=== PATIENT | female | born 1990 | race American Indian/Alaskan Native ===

== ENCOUNTER 2018-05-04 16:52 | Inpatient (IN) | payer MEDICAID, OTHER ==
[2018-05-04] MEDS ORDERED: LACTATED RINGERS 500 ML IV ONE (17:05)
[2018-05-04 18:59] LABS: Hematocrit 38.7 % (30.3-42.9); Hemoglobin 12.7 gm/dl (10.1-14.3); Mean Corpuscular HGB Conc 33 % (30-34); Mean Corpuscular Volume 87 fl (79-97); Platelet Count 250 K/mm3 (140-440); Red Blood Count 4.45 M/mm3 (3.65-5.03); Red Cell Distribution Width 14.4 % (13.2-15.2)
[2018-05-04 19:06] LABS: Bilirubin,Urine NEG (Negative); Blood,Urine NEG (Negative); Color,Urine Yellow (Yellow); Mucus,Urine FEW /HPF; Urobilinogen,Urine < 2.0 mg/dL (<2.0); WBC,Urine < 1.0 /HPF (0.0-6.0)
[2018-05-04 19:13] LABS: Alanine Aminotransferase 16 units/L (7-56); Uric Acid 3.3 mg/dL (3.5-7.6)
[2018-05-04] MEDS ORDERED: TYLENOL PO PRN (19:45)
[2018-05-04] MEDS ORDERED: COLACE PO PRN (19:45)
--- NOTE | 2018-05-04 20:17 | History and Physical Report ---
History of Present Illness Date of examination: 05/04/18 Date of admission: 05/04/18 Chief complaint: "Sent from the clinic due to high blood pressure" History of present illness: 27yo G 1 P 0 at 35 weeks 5 days here from the clinic for PIH workup. BPs at the clinic were 146/97, 142/101. She denies headache, visual disturbances or RUQ pain. She is a [employer] patient who initiated care at 26w2d. She transferred care from [facility]. Her course has been unremarkable. Labs: A pos, Antibody Screen neg, Pap smear normal, RI, VDRL NR, HBsAg neg, HIV neg , GC/CT.Trich neg, HSV II neg/ HSV I pos, MSAFP neg, Diabetes Screen 98, GBS unknown (done today at the clinic). Past History Past Medical History: no pertinent history Past Surgical History: no surgical history Family/Genetic History: none Social history: single, lives with family, full code. denies: smoking, alcohol abuse, prescription drug abuse, IV drug use - Obstetrical History Expected Date of Delivery: 06/03/18 Actual Gestation: 35 Week(s) 5 Day(s) : 1 Para: 0 Hx # Term Pregnancies: 0 Number of Pregnancies: 0 Spontaneous Abortions: 0 Induced : 0 Number of Living Children: 0 Medications and Allergies Allergies Allergy/AdvReac Type Severity Reaction Status Date / Time No Known Allergies Allergy Verified 05/04/18 17:04 Active Meds: Active Medications Acetaminophen (Tylenol) 650 mg PO Q4H PRN PRN Reason: Pain MILD(1-3)/Fever >100.5/ROUSE Docusate Sodium (Colace) 100 mg PO Q12H PRN PRN Reason: Constipation Multivitamins/Iron/Calcium ( Vitamin) 1 each PO QDAY ROSAURA Review of Systems All systems: negative - Vital Signs Vital signs: Vital Signs Pulse BP 87 141/89 05/04/18 17:56 05/04/18 17:56 Temp Pulse Resp BP Pulse Ox 97.7 F 85 20 138/94 05/04/18 18:11 05/04/18 19:56 05/04/18 18:11 05/04/18 19:56 - Obstetrical FHR: auscultation normal, category 1 FHR comments: baseline 130, moderate variability, 15x15 accels, no decels Uterine Contraction Monitor Mode: External Cervical Dilatation: 0 Cervical Effacement Percentage: 20 station: -3 Uterine Contraction Pattern: Regular Results Result Diagrams: 05/04/18 18:28 05/04/18 18:28 Abnormal lab results 05/04/18 Range/Units 18:28 Creatinine 0.6 L (0.7-1.2) mg/dL Uric Acid 3.3 L (3.5-7.6) mg/dL Lactate Dehydrogenase 214 H (91-180) units/L All other labs normal. Assessment and Plan - Patient Problems (1) 35 weeks gestation of Current Visit: Yes Status: Acute (2) Gestational hypertension without significant proteinuria in third trimester Current Visit: Yes Status: Acute Plan to address problem: Asymptomatic Consulted Dr. Love about POC. She recommended - to admit patient for 23-hr Observation - start 24-hr urine collection - order BPP, TU and UAD - initiate [facility] consult
--- NOTE | 2018-05-04 22:22 | Ultrasound Report ---
PROCEDURE: US OB BPP WO NON-STRESS TECHNIQUE: A limited OB sonogram was obtained for evaluation of the physical profile. HISTORY: Gestational Hypertension COMPARISONS: None FINDINGS: A maximum score of 2 out of 2 was obtained for breathing movements, movements, post ure and tone, as well as qualitative amniotic fluid volume. The total biophysical profile score is 8 out of 8. The heart rate is 141 BPM. IMPRESSION: Biophysical profile score of 8 out of 8.. This document is electronically signed by Jamie Pitts MD., May 04 2018 10:19:56 PM ET
--- NOTE | 2018-05-04 22:37 | Ultrasound Report ---
PROCEDURE: US OB LIMITED TECHNIQUE: Real-time limited sonographic examination was performed for evaluation of amniotic fluid for each fetus with image documentation (1 or more fetuses). HISTORY: Gestational Hypertension COMPARISONS: None . FINDINGS: Single intrauterine gestation is noted with a heart rate of 1 41 bpm. Amniotic fluid index is 1 5.6 cm. Presentation is cephalic. IMPRESSION: Amniotic fluid is within normal limits. . This document is electronically signed by Ilir Sanabria MD., May 04 2018 10:34:49 PM ET
[2018-05-04] MEDS ORDERED: LACTATED RINGERS 1,000 ML ONE (23:49)
--- NOTE | 2018-05-05 09:22 | Ultrasound Report ---
PROCEDURE: US OB VELOCIMETRY UMBILCAL ART TECHNIQUE: Duplex Doppler ultrasound of the umbilical artery was performed HISTORY: Gestational Hypertension COMPARISONS: None FINDINGS: There is a normal waveform of the umbilical artery. Peak systolic velocity is 55.7 cm/s. The systolic to diastolic ratio average is 2.24. The average resistive index is 0.55. heart rate is 141 beats per minutes IMPRESSION: Normal examination of the umbilical artery. This document is electronically signed by France Gates MD., May 05 2018 09:19:55 AM ET
--- NOTE | 2018-05-05 09:42 | Consultation ---
History of Present Illness Consult date: 05/05/18 Requesting physician: JING MOTA Reason for consult: gestational hypertension History of present illness: Thank you for your recent consultation regarding the above named patient. As you are aware, this is a 27 year old para 0000 at 35+ weeks gestation (based on an GIORGIO of 05/31/18) This is a patient that was admitted to [facility] on Friday, May 04, 2018 when she was noted to have elevated blood pressure Her 24 hour urine is pending. She was admitted to rule out preeclampsia. Her blood pressure was mild elevation (see below) She is currently under observation to rule out superimposed preeclampsia. Baseline 24 hour urine showed : NOT AVAILABLE. Her labs show no signs of HELLP. Symptomatically, the patient describes DENIES dizziness and denies headache. She does NOT describe recent swelling of the face and upper extremities. PAST OBSTETRICAL HISTORY: NO previous pregnancies. PAST MEDICAL HISTORY: * Patient gives a NOT give a history of chronic hypertension. AVAILABLE LAB TEST ON ADMISSION: PENDING. Baseline 24 hour urine: NOT AVAILABLE Current 24 hour urine: PENDING.. [facility] ULTRASON[facility]APHY See report in patients chart. RECENT BLOOD PRESSURES: 120/72 FHR Tracing: Category 1. No recurrent decelerations. Past History Past Medical History: no pertinent history Past Surgical History: no surgical history Family/Genetic History: none - Obstetrical History : 1 Medications and Allergies Allergies Allergy/AdvReac Type Severity Reaction Status Date / Time No Known Allergies Allergy Verified 05/04/18 17:04 Active Meds: Active Medications Acetaminophen (Tylenol) 650 mg PO Q4H PRN PRN Reason: Pain MILD(1-3)/Fever >100.5/ROUSE Docusate Sodium (Colace) 100 mg PO Q12H PRN PRN Reason: Constipation Multivitamins/Iron/Calcium ( Vitamin) 1 each PO QDAY ROSAURA - Vital Signs Vital signs: Vital Signs Pulse BP 87 141/89 05/04/18 17:56 05/04/18 17:56 Temp Pulse Resp BP Pulse Ox 98.6 F 81 18 120/72 97 05/04/18 23:56 05/05/18 07:48 05/04/18 23:56 05/05/18 07:48 05/05/18 07:46 Results Result Diagrams: 05/04/18 18:28 05/04/18 18:28 Abnormal lab results 05/04/18 Range/Units 18:28 Creatinine 0.6 L (0.7-1.2) mg/dL Uric Acid 3.3 L (3.5-7.6) mg/dL Lactate Dehydrogenase 214 H (91-180) units/L All other labs normal. Assessment and Plan ASSESSMENT * This is a 27 year old para 0 at 35 weeks gestation with elevated blood pressure. * Rule out preeclampsia. * At the present gestational age, there MAY be some utility to an attempt to prolong gestation to improve outcome. * prolongation should NOT occur in the presence of any signs of symptoms of severe preeclampsia. RECOMMENDATION: Given her gestational age we would recommend DELIVERY in the presence of any findings which would suggest SEVERE preeclampsia. If the patient develops any of the criteria for delivery (see below) during observation we would recommend taking steps to deliver this . Would proceed as follows: 1. Agree with admission for serial BP, urinalysis, PIH labs and observation. 2. Obtain a 24 hour urine 3. Contact [facility] with the results of the 24 hour urine. 4. Kindly follow-up the results of this patient's repeat 24-hour urine for protein and creatinine clearance and forward them to [facility] for review. 5. In the presence of overt evidence of severe preeclampsia we recommend delivery of this patient. 6. I have indicated that a persistent headache unresponsive to analgesia would be a clear indication for delivery of this patient. 7. Kindly contact [facility] if there is any question as to whether this patient is a candidate for delivery. 8. At 35 weeks gestation; it would appear that there is some benefit to an expectant management protocol to prolong gestation in order to improve outcome without increasing maternal morbidity. In a patient with MILD preeclampsia we recommend DELIVERY at 37 weeks. In a patient with SEVERE preeclampsia we recommend DELIVERY either AT DIAGNOSIS or at 34 weeks gestation. Reference: REFERENCE: Medically indicated late- and early-term deliveries. Committee Opinion No. 560. [employer]. Obstet Gynecol 2013;121:18792. 9. The indications for discontinuation of expectant management and DELIVERY in this patient would include ANY of the following: * heart rate abnormalities, (ie, bradycardia , repetitive late or variable decelerations) * Significant new onset proteinuria (see above) * Thrombocytopenia * Hemolysis, * Elevation in liver function tests * Blood pressure that is very labile or poorly controlled with reasonable doses of intravenous labetalol * Symptoms of severe pre-eclampsia epigastric discomfort, headache, dizziness, blurred vision, RUQ pain, seizure. * Standard obstetrical indications Thank you for allowing us to participate in the care of this patient. We look forward to the opportunity to assist in her continued management. If you have any questions, we may be reached [phone]. Lyly Best M.D.
[2018-05-05] MEDS ORDERED: PRENATAL VITAMIN PO SCH (10:00)
--- NOTE | 2018-05-05 17:16 | Progress Note ---
Assessment and Plan - Patient Problems (1) 35 weeks gestation of Current Visit: Yes Status: Acute (2) Gestational hypertension without significant proteinuria in third trimester Current Visit: Yes Status: Acute Plan to address problem: 24hr urine protein in progress. PIH labs within normal limits. Continue monitoring blood pressure. [facility] consult done. If CHTN S/I severe deliver now, if mild deliver at 37 weeks. Objective - Vital Signs Vital Signs: Vital Signs - 12hr 05/05/18 05/05/18 05/05/18 05:16 05:21 05:26 Temperature Pulse Rate 104 H 85 83 Respiratory Rate Blood Pressure O2 Sat by Pulse 97 97 97 Oximetry 05/05/18 05/05/18 05/05/18 05:31 05:36 05:41 Temperature Pulse Rate 88 83 83 Respiratory Rate Blood Pressure O2 Sat by Pulse 95 95 96 Oximetry 05/05/18 05/05/18 05/05/18 05:46 05:51 05:52 Temperature Pulse Rate 86 92 H 103 H Respiratory Rate Blood Pressure O2 Sat by Pulse 98 95 94 Oximetry 05/05/18 05/05/18 05/05/18 05:56 06:01 06:03 Temperature Pulse Rate 96 H 86 92 H Respiratory Rate Blood Pressure 115/65 O2 Sat by Pulse 99 95 Oximetry 05/05/18 05/05/18 05/05/18 06:06 06:09 06:11 Temperature Pulse Rate 94 H 91 H 96 H Respiratory Rate Blood Pressure O2 Sat by Pulse 95 94 96 Oximetry 05/05/18 05/05/18 05/05/18 06:16 06:17 06:21 Temperature Pulse Rate 85 97 H 92 H Respiratory Rate Blood Pressure O2 Sat by Pulse 96 94 95 Oximetry 05/05/18 05/05/18 05/05/18 06:22 06:26 06:31 Temperature Pulse Rate 89 95 H 89 Respiratory Rate Blood Pressure O2 Sat by Pulse 93 96 96 Oximetry 05/05/18 05/05/18 05/05/18 06:32 06:36 07:40 Temperature 98.8 F Pulse Rate 92 H 88 Respiratory 18 Rate Blood Pressure O2 Sat by Pulse 94 97 Oximetry 05/05/18 05/05/18 05/05/18 07:46 07:48 09:43 Temperature Pulse Rate 90 81 95 H Respiratory Rate Blood Pressure 120/72 O2 Sat by Pulse 97 94 Oximetry 05/05/18 05/05/18 05/05/18 09:48 10:27 11:01 Temperature Pulse Rate 88 78 105 H Respiratory Rate Blood Pressure 119/66 O2 Sat by Pulse 92 94 93 Oximetry 05/05/18 05/05/18 05/05/18 11:49 11:54 12:39 Temperature Pulse Rate 78 95 H 101 H Respiratory Rate Blood Pressure 119/74 132/75 O2 Sat by Pulse 94 Oximetry 05/05/18 05/05/18 05/05/18 12:41 13:48 15:11 Temperature 97.9 F Pulse Rate 89 98 H Respiratory 16 Rate Blood Pressure 125/74 O2 Sat by Pulse 93 Oximetry 05/05/18 05/05/18 05/05/18 16:07 16:12 16:17 Temperature Pulse Rate 92 H 96 H 88 Respiratory Rate Blood Pressure O2 Sat by Pulse 98 98 98 Oximetry 05/05/18 05/05/18 05/05/18 16:22 16:27 16:32 Temperature Pulse Rate 86 91 H 86 Respiratory Rate Blood Pressure O2 Sat by Pulse 98 98 98 Oximetry 05/05/18 05/05/18 05/05/18 16:37 17:02 17:07 Temperature Pulse Rate 84 95 H 101 H Respiratory Rate Blood Pressure O2 Sat by Pulse 98 98 97 Oximetry 05/05/18 17:12 Temperature Pulse Rate 95 H Respiratory Rate Blood Pressure O2 Sat by Pulse 97 Oximetry - Labs Labs: Abnormal Labs 05/04/18 18:28 Creatinine 0.6 L Uric Acid 3.3 L Lactate Dehydrogenase 214 H Laboratory Results - last 24 hr 05/04/18 05/04/18 05/04/18 18:28 18:28 18:33 WBC 8.0 RBC 4.45 Hgb 12.7 Hct 38.7 MCV 87 MCH 29 MCHC 33 RDW 14.4 Plt Count 250 Creatinine 0.6 L Estimated GFR > 60 Uric Acid 3.3 L AST 27 ALT 16 Lactate Dehydrogenase 214 H Urine Color Yellow Urine Turbidity Clear Urine pH 6.0 Ur Specific [place] 1.026 Urine Protein 30 mg/dl Urine Glucose (UA) Neg Urine Ketones Neg Urine Blood Neg Urine Nitrite Neg Urine Bilirubin Neg Urine Urobilinogen < 2.0 Ur Leukocyte Esterase Neg Urine WBC (Auto) < 1.0 Urine RBC (Auto) 2.0 U Epithel Cells (Auto) 8.0 Urine Mucus Few Blood Type Antibody Screen 05/04/18 21:59 WBC RBC Hgb Hct MCV MCH MCHC RDW Plt Count Creatinine Estimated GFR Uric Acid AST ALT Lactate Dehydrogenase Urine Color Urine Turbidity Urine pH Ur Specific [place] Urine Protein Urine Glucose (UA) Urine Ketones Urine Blood Urine Nitrite Urine Bilirubin Urine Urobilinogen Ur Leukocyte Esterase Urine WBC (Auto) Urine RBC (Auto) U Epithel Cells (Auto) Urine Mucus Blood Type A POSITIVE Antibody Screen Negative
[2018-05-06 12:42] VITALS: BP 117/69
--- NOTE | 2018-05-06 13:11 | Consultation ---
History of Present Illness Consult date: 05/06/18 Reason for consult: other (Suspected Preeclampsia) History of present illness: She is a 27yo , at 35+ weeks gestational, admitted to [facility] due to elevated BPs in primary OB office. 24 hour urine resulted 440. She complains of 2+edema in bilateral upper and lower extremities. She denies RUQ pain, visual disturbances, and headaches. She denies contractions, LOF, and bleeding. She admits positive movements. She is without additional complaints today. Past History Past Medical History: no pertinent history Past Surgical History: no surgical history Family/Genetic History: none - Obstetrical History : 1 Medications and Allergies Allergies Allergy/AdvReac Type Severity Reaction Status Date / Time No Known Allergies Allergy Verified 05/04/18 17:04 Active Meds: Active Medications Acetaminophen (Tylenol) 650 mg PO Q4H PRN PRN Reason: Pain MILD(1-3)/Fever >100.5/ROUSE Docusate Sodium (Colace) 100 mg PO Q12H PRN PRN Reason: Constipation Multivitamins/Iron/Calcium ( Vitamin) 1 each PO QDAY ROSAURA Last Admin: 05/05/18 10:49 Dose: 1 each Documented by: Review of Systems Constitutional: other (denies fever, headaches, fatigue) Eyes: other (denies visual disturbances) Ears, nose, mouth and throat: deferred Cardiovascular: leg edema, other (denies chest pain, palpitations) Respiratory: other (denies sob, wheezing, coughing) Breasts: deferred Gastrointestinal: other (denies diarrhea, constipation, nausea, RUQ pain) Genitourinary: other (denies contractions, leaking of fluid, and bleeding) Rectal Exam: deferred Integumentary: deferred Neurological: other (denies headaches) - Vital Signs Vital signs: Vital Signs Pulse BP 87 141/89 05/04/18 17:56 05/04/18 17:56 Temp Pulse Resp BP Pulse Ox 97.5 F L 96 H 18 117/69 97 05/06/18 08:30 05/06/18 13:03 05/06/18 08:30 05/06/18 12:41 05/06/18 13:03 - Physical Exam Breasts: Positive: deferred Cardiovascular: Regular rate, Normal S1, Normal S2 Lungs: Positive: Clear to auscultation, Normal air movement Abdomen: Positive: soft, other (gravid) Results Result Diagrams: 05/04/18 18:28 05/04/18 18:28 Abnormal lab results 05/04/18 Range/Units 22:45 Ur Total Protein 24 Hr 440.00 H (2-200) mg/dL Urine Total Protein 20 H (5-11.8) mg/dL All other labs normal. Assessment and Plan A- [place] IUP 35+ weeks (GIORGIO 05/31/18) 24 hour urine protein- 440 Other labs stable Bilateral upper and lower extremities edema Denies RUQ pain, visual disturbances, headaches BP stable- not requiring medication management Normal ultrasound an BPP noted Positive movements Denies LOF, Bleeding, and Contractions Recommendations: 1. Discharge patient and she should follow up with [facility] once weekly until delivery to monitor for GHTN with mild preeclampsia 2. Preeclampsia symptoms reviewed with pt 3. Kick counts reviewed with pt. 4. With worsening symptoms, recommend delivery 5. In a patient with MILD preeclampsia we recommend DELIVERY at 37 weeks. Thank you for this consult. For additional questions/concerns, please contact [facility].
--- NOTE | 2018-05-06 13:57 | Discharge Summary ---
Providers - Providers Date of Admission: 05/06/18 09:05 Date of discharge: 05/06/18 Attending physician: MONTY SAUL MD 05/04/18 19:45 Consult to Physician [CONS] Routine Comment: Consulting Provider: AILYN REDMAN I Physician Instructions: Reason For Exam: 35w5d, Gestational Hypertension Primary care physician: MONTY SAUL MD Hospitalization Reason for admission: IUP - (IUP @ 35 5/7 weeks), observation Other procedures: none complications: none Discharge diagnosis: other (IUP @ 36 0/7 weeks; PIH - improved) Hospital course: She is a 27yo , at 36 0/7 weeks gestational, admitted to [facility] due to eleva ginny BPs in primary OB office. 24 hour urine resulted 440. She complains of 2+edema in bilateral upper and lower extremities. She denies RUQ pain, visual disturbances, and headaches. She denies contractions, LOF, and bleeding. She admits positive movements. She is without additional complaints today, and cleared for discharge per [facility].. Condition at discharge: Good Disposition: DC-01 TO HOME OR SELFCARE - Discharge Diagnoses (1) 36 weeks gestation of Status: Acute (2) Gestational hypertension without significant proteinuria in third trimester Status: Chronic Plan - Provider Discharge Summary Activity: routine, no sex for 6 weeks, no heavy lifting 4 weeks, no strenuous exercise Diet: routine Instructions: routine Additional instructions: [] Smoking cessation referral if applicable(refer to patient education folder for contact #) [] Refer to [facility] Booklet Call your doctor immediately for: * Fever > 100.5 * Heavy vaginal bleeding ( >1 pad per hour) * Severe persistent headache * Shortness of breath * Reddened, hot, painful area to leg or breast * Drainage or odor from incision. * Keep incision clean and dry at all times and follow doctor's instructions regarding bathing/showering - Follow up plan Follow up: AILYN REDMAN MD [Staff Physician] - 7 Days MONTY SAUL MD [Primary Care Provider] - 3 Days
== END 2018-05-06 15:06 | disposition home or self-care (01) | DRG 781 ==
LOC: TRG 16:52 → LD 21:55 → OBSVTOIN 05-06 09:05
PROVIDERS: ADMIT Obstetrics & Gynecology; ATTEND Obstetrics & Gynecology
DX: O14.03 Mild to moderate pre-eclampsia, third trimester (principal); Z3A.35 35 weeks gestation of pregnancy
CPT/HCPCS: 36415; 76815; 76819; 76820; 81001; 82565; 83615; 84156; 84450; 84460; 84550; 85027; 86850; 86900; 86901; G0378; J7120

== ENCOUNTER 2018-05-20 20:37 | Inpatient (IN) | payer OTHER ==
[2018-05-20] MEDS ORDERED: STADOL IV PRN (22:33)
[2018-05-20] MEDS ORDERED: AMPICILLIN/NS 2 GM/100 ML 2 GM/100 ML BAG IV ONE (22:34)
[2018-05-20] MEDS ORDERED: SUBLIMAZE IV ONE (22:36)
[2018-05-20] MEDS ORDERED: CERVIDIL VG ONE (22:41)
[2018-05-20] MEDS ORDERED: LACTATED RINGERS 1,000 ML ONE (22:44)
[2018-05-20] MEDS: LACTATED RINGERS 1,000 ML IV SCH (22:50)
[2018-05-21 00:01] LABS: Alanine Aminotransferase 18 units/L (7-56)
[2018-05-21 00:28] LABS: Uric Acid 3.7 mg/dL (3.5-7.6)
[2018-05-21 00:40] LABS: Hematocrit 34.8 % (30.3-42.9); Mean Corpuscular HGB Conc 35 % (30-34); Mean Corpuscular Volume 86 fl (79-97); Platelet Count 193 K/mm3 (140-440); Red Blood Count 4.04 M/mm3 (3.65-5.03)
[2018-05-21 00:51] LABS: Bilirubin,Urine NEG (Negative); Blood,Urine NEG (Negative); Color,Urine Yellow (Yellow); Mucus,Urine 2+ /HPF; Urobilinogen,Urine < 2.0 mg/dL (<2.0)
[2018-05-21] MEDS ORDERED: BENADRYL PO ONE ×3 (02:15→20:21)
[2018-05-21] MEDS: AMPICILLIN/NS 1 GM/50 ML 1 GM/50 ML BAG IV SCH ×5 (02:22→23:16)
[2018-05-21] MEDS: LACTATED RINGERS 1,000 ML IV SCH ×3 (09:09→23:17)
--- NOTE | 2018-05-21 10:32 | History and Physical Report ---
History of Present Illness Date of examination: 05/21/18 Date of admission: 05/20/18 20:37 Chief complaint: SIUP at 38 weeks and 1 day gestation. History of present illness: Patient is a 27 year old , LMP 08/27/17, EDC 06/03/18 at 38 weeks and 1 day. Sheb was admitted for elevated BP 0f 162/118. Initial exam showed her BP to be 150/105, cervix: closed/long. She was induced with cervidil. tracing is CAT. Toxemia labs showed elevated AST and LDH. Past History Past Surgical History: no surgical history Social history: no significant social history - Obstetrical History Expected Date of Delivery: 06/03/18 Actual Gestation: 38 Week(s) 1 Day(s) : 1 Medications and Allergies Allergies Allergy/AdvReac Type Severity Reaction Status Date / Time No Known Allergies Allergy Verified 05/04/18 17:04 Active Meds: Active Medications Butorphanol Tartrate (Stadol) 2 mg IV Q2H PRN PRN Reason: Labor Pain Lactated Ringer's (Lactated Ringers) 1,000 mls @ 125 mls/hr IV DIRECT ROSAURA Last Admin: 05/21/18 09:09 Dose: 125 mls/hr Documented by: Ampicillin Sodium (Ampicillin/Ns 1 Gm/50 Ml) 1 gm in 50 mls @ 100 mls/hr IV Q4HR ROSAURA; Protocol Last Admin: 05/21/18 07:50 Dose: 100 mls/hr Documented by: - Vital Signs Vital signs: Vital Signs Pulse Ox 83 L 05/06/18 14:30 Temp Pulse Resp BP Pulse Ox 93 H 149/90 83 L 05/21/18 07:53 05/21/18 07:53 05/06/18 14:56 - Physical Exam Cardiovascular: Normal S1, Normal S2 Lungs: Positive: Clear to auscultation Vulva: both: normal Deep Tendon Reflex Grade: Normal but brisk +3 - Obstetrical FHR: category 1 Cervical Dilatation: 0 Cervical Effacement Percentage: 0 station: -3 Uterine Contraction Pattern: Absent Results Result Diagrams: 05/21/18 00:22 05/20/18 22:21 Abnormal lab results 05/20/18 05/20/18 05/21/18 Range/Units 22:21 23:50 00:22 MCHC 35 H (30-34) % AST 45 H (5-40) units/L Lactate Dehydrogenase 527 H (91-180) units/L Ur Specific [place] 1.031 H (1.003-1.030) All other labs normal. Assessment and Plan - Patient Problems (1) 38 weeks gestation of Current Visit: Yes Status: Acute (2) Pre-eclampsia Current Visit: Yes Status: Acute Plan to address problem: Will start patients on magnesium. Monitor Mg level, urine output, DTRs. Monitor BP. Labetolol for BP control. (3) Positive GBS test Current Visit: Yes Status: Acute Plan to address problem: IV antibiotics in active labor.
[2018-05-21] MEDS ORDERED: MAGNESIUM SULFATE 4GM/100ML 4 GM/100 ML BAG IV ONE (11:45)
[2018-05-21] MEDS ORDERED: PITOCin/NS 20 UNIT/1000ML DRIP 20 UNITS/1,000 ML BAG IV SCH (12:00)
[2018-05-21] MEDS ORDERED: STADOL IV PRN (12:00)
[2018-05-21] MEDS ORDERED: MINERAL OIL PO PRN (12:00)
[2018-05-21] MEDS ORDERED: BRETHINE IVP PRN (12:00)
[2018-05-21] MEDS ORDERED: XYLOCAINE 2% INFILTRATI NR (12:00)
[2018-05-21] MEDS ORDERED: LACTATED RINGERS 1,000 ML IV SCH (12:00)
[2018-05-21] MEDS ORDERED: NARCAN 0.4 MG/1 ML IV PRN (12:00)
[2018-05-21] MEDS ORDERED: BRETHINE SUB-Q PRN (12:00)
[2018-05-21] MEDS ORDERED: PITOCin/NS 30 UNIT/500ML 30 UNITS/500 ML BAG IV SCH ×2 (12:00)
[2018-05-21] MEDS: MAGNESIUM SULFATE 40GM/1000ML 40 GM/1,000 ML BAG IV SCH (12:30)
--- NOTE | 2018-05-21 12:58 | Progress Note ---
Assessment and Plan A: Term IUP at 38w1d Preeclampsia; Magnesium bolus complete Category 1 tracing GBS positive Cooks Catheter placed@ 12:42, Pt tearful with "cramping/pressure" P: Routine labor orders Magnesium 2grams/hr GBS prophylaxis Start low dose pitocin; leave at 4Mu Anticipate Subjective - Subjective Date of service: 05/21/18 (12:42) Principal diagnosis: IUP term, pre-eclampsia Patient reports: movement normal, contractions, no loss of fluid, no vaginal bleeding Objective - Vital Signs Vital Signs: Vital Signs - 12hr 05/21/18 05/21/18 05/21/18 00:57 01:27 04:15 Pulse Rate 75 74 68 Blood Pressure 119/69 129/70 120/75 05/21/18 05/21/18 05/21/18 07:53 10:27 11:01 Pulse Rate 93 H 71 69 Blood Pressure 149/90 136/81 136/87 05/21/18 05/21/18 05/21/18 11:31 12:16 12:30 Pulse Rate 67 75 79 Blood Pressure 140/88 134/75 142/91 - Exam Cardiovascular: Regular rate, Normal S1, Normal S2, No murmurs Lungs: Clear to auscultation, Normal air movement Abdomen: Present: normal appearance, soft. Absent: distention Vulva: both: normal Uterus: Present: firm (Gravid) FHR: category 1 Uterine Contraction Monitor Mode: External Cervical Dilatation: 1 (Cooks catheter inserted in gentle fashion, Uterine & vaginal baloons inflated using 80cc NS. ) Cervical Effacement Percentage: 50 station: -2 Uterine Contraction Pattern: Regular Uterine Tone Measurement Phase: Resting Uterine Contraction Intensity: Mild Extremities: normal Deep Tendon Reflex Grade: Normal +2 - Labs Labs: Abnormal Labs 05/20/18 05/20/18 05/21/18 22:21 23:50 00:22 MCHC 35 H AST 45 H Lactate Dehydrogenase 527 H Ur Specific [place] 1.031 H Laboratory Results - last 24 hr 05/20/18 05/20/18 05/20/18 22:21 22:21 22:21 WBC RBC Hgb Hct MCV MCH MCHC RDW Plt Count Creatinine 0.8 Estimated GFR > 60 Uric Acid 3.7 AST 45 H ALT 18 Lactate Dehydrogenase 527 H Urine Color Urine Turbidity Urine pH Ur Specific [place] Urine Protein Urine Glucose (UA) Urine Ketones Urine Blood Urine Nitrite Urine Bilirubin Urine Urobilinogen Ur Leukocyte Esterase Urine WBC (Auto) Urine RBC (Auto) U Epithel Cells (Auto) Urine Mucus RPR Nonreactive Blood Type A POSITIVE Antibody Screen Negative 05/20/18 05/21/18 23:50 00:22 WBC 8.7 RBC 4.04 Hgb 12.0 Hct 34.8 MCV 86 MCH 30 MCHC 35 H RDW 14.0 Plt Count 193 Creatinine Estimated GFR Uric Acid AST ALT Lactate Dehydrogenase Urine Color Yellow Urine Turbidity Clear Urine pH 6.0 Ur Specific [place] 1.031 H Urine Protein 30 mg/dl Urine Glucose (UA) Neg Urine Ketones Neg Urine Blood Neg Urine Nitrite Neg Urine Bilirubin Neg Urine Urobilinogen < 2.0 Ur Leukocyte Esterase Neg Urine WBC (Auto) 2.0 Urine RBC (Auto) 2.0 U Epithel Cells (Auto) 9.0 Urine Mucus 2+ RPR Blood Type Antibody Screen
[2018-05-21] MEDS ORDERED: PFIZERPEN 2.5 MIL.UNITS in NACL 0.9% 50 ML IV SCH (14:00)
--- NOTE | 2018-05-21 15:53 | Anesthesia Consultation ---
Anesthesia Consult and Med Hx - Airway Anesthetic Teeth Evaluation: Good ROM Head & Neck: Adequate Mental/Hyoid Distance: Adequate Mallampati Class: Class I Intubation Access Assessment: Good - Pulmonary Exam CTA: Yes - Cardiac Exam Cardiac Exam: RRR - Pre-Operative Health Status ASA Pre-Surgery Classification: ASA2 Proposed Anesthetic Plan: Epidural - Pulmonary Hx Smoking: No Hx Asthma: No Hx Respiratory Symptoms: No COPD: No Hx Pneumonia: No - Cardiovascular System Hx Hypertension: No - Central Nervous System Hx Neuromuscular Disorder: No Hx Seizures: No Hx Psychiatric Problems: No - Gastrointestinal Hx Ulcer: No Hx Gastroesophageal Reflux Disease: Yes - Endocrine Hx Renal Disease: No Hx End Stage Renal Disease: No Hx Hypothyroidism: No Hx Hyperthyroidism: No - Hematic Hx Anemia: Yes Hx Sickle Cell Disease: No - Other Systems Hx Alcohol Use: No
--- NOTE | 2018-05-21 15:54 | Anesthesia Day of Surgery ---
Anesthesia Day of Surgery - Day of Surgery Patient Examined: Yes Patient H&P Reviewed: Yes Patient is NPO: Yes Beta Blockers: No Cardiac Clearance: No Pulmonary Clearance: No Greg's Test: N/A
[2018-05-21] MEDS ORDERED: MARCAINE 0.25% INFILTRATI ONE ×2 (15:57→23:08)
[2018-05-21] MEDS ORDERED: NARCAN 2 MG/2 ML IV PRN (16:29)
[2018-05-21] MEDS ORDERED: fentaNYL-BUPIV 2 MCG/ML-0.125% 200 MCG/100 ML BAG EPIDURAL ONE (16:31)
[2018-05-21] MEDS: fentaNYL-BUPIV 2 MCG/ML-0.125% 200 MCG/100 ML BAG EPIDURAL SCH (16:51)
[2018-05-22] MEDS: fentaNYL-BUPIV 2 MCG/ML-0.125% 200 MCG/100 ML BAG EPIDURAL SCH (00:48)
[2018-05-22] MEDS: AMPICILLIN/NS 1 GM/50 ML 1 GM/50 ML BAG IV SCH (03:33)
--- NOTE | 2018-05-22 05:16 | Progress Note ---
Assessment and Plan A: Term IUP at 38w2d Preeclampsia; Magnesium 2gram hr (Mag level 4.6); VSS Category 2 tracing GBS positive SROM 05/21 @ 23:15, Meconium Pitocin 10MU Pt uncomfortable with epidural SVE 6/80/-2; Caput, head asynclitic; Dysfunctional contraction pattern; IUPC inserted Maternal temp 100.2 P: Routine labor orders Magnesium 2grams/hr; Mag levels Q4 hrs GBS prophylaxis Consult Anesthesia to redose/redo epidural (spoke with MATT Reed) Tylenol 650mg [place] NICU/RT to be present for delivery Increase pitocin until MVUs 275-300 Explained to pt and family possibility of section d/t position, dysfunctional contraction pattern, caput. Pt has been slow to progress. Will attempt to get into adequate contraction pattern after comfortable. Will recheck pt in one hour Subjective - Subjective Date of service: 05/22/18 Principal diagnosis: IOL, IUP term, pre-eclampsia Patient reports: movement normal, contractions, other (Epidural not releiving pain/pressure) Objective - Vital Signs Vital Signs: Vital Signs - 12hr 05/21/18 05/21/18 05/21/18 17:14 17:16 17:17 Temperature Pulse Rate 81 94 H 105 H Blood Pressure 131/59 129/61 Blood Pressure [Left] O2 Sat by Pulse 99 Oximetry 05/21/18 05/21/18 05/21/18 17:18 17:20 17:22 Temperature Pulse Rate 96 H 90 106 H Blood Pressure 130/66 126/62 123/64 Blood Pressure [Left] O2 Sat by Pulse 99 Oximetry 05/21/18 05/21/18 05/21/18 17:24 17:26 17:27 Temperature Pulse Rate 88 93 H 98 H Blood Pressure 137/72 130/62 Blood Pressure [Left] O2 Sat by Pulse 100 Oximetry 05/21/18 05/21/18 05/21/18 17:28 17:30 17:32 Temperature Pulse Rate 92 H 88 98 H Blood Pressure 136/64 132/70 135/64 Blood Pressure [Left] O2 Sat by Pulse 99 Oximetry 05/21/18 05/21/18 05/21/18 17:34 17:36 17:37 Temperature Pulse Rate 81 87 103 H Blood Pressure 133/64 129/65 Blood Pressure [Left] O2 Sat by Pulse 99 Oximetry 05/21/18 05/21/18 05/21/18 17:38 17:40 17:42 Temperature Pulse Rate 96 H 86 103 H Blood Pressure 131/75 131/74 133/74 Blood Pressure [Left] O2 Sat by Pulse 100 Oximetry 05/21/18 05/21/18 05/21/18 17:46 17:47 17:49 Temperature Pulse Rate 96 H 111 H 90 Blood Pressure 148/73 128/60 Blood Pressure [Left] O2 Sat by Pulse 99 Oximetry 05/21/18 05/21/18 05/21/18 17:51 17:52 17:54 Temperature Pulse Rate 106 H 89 92 H Blood Pressure 162/72 145/70 Blood Pressure [Left] O2 Sat by Pulse 99 Oximetry 05/21/18 05/21/18 05/21/18 17:56 17:57 17:58 Temperature Pulse Rate 96 H 86 88 Blood Pressure 134/61 126/62 Blood Pressure [Left] O2 Sat by Pulse 99 Oximetry 05/21/18 05/21/18 05/21/18 18:00 18:02 18:04 Temperature Pulse Rate 97 H 89 98 H Blood Pressure 117/62 140/70 136/68 Blood Pressure [Left] O2 Sat by Pulse 100 Oximetry 05/21/18 05/21/18 05/21/18 18:06 18:07 18:09 Temperature Pulse Rate 94 H 95 H 101 H Blood Pressure 144/70 141/79 Blood Pressure [Left] O2 Sat by Pulse 99 Oximetry 05/21/18 05/21/18 05/21/18 18:10 18:12 18:14 Temperature Pulse Rate 96 H 98 H 96 H Blood Pressure 140/70 136/71 136/80 Blood Pressure [Left] O2 Sat by Pulse 99 Oximetry 05/21/18 05/21/18 05/21/18 18:16 18:17 18:22 Temperature Pulse Rate 101 H 97 H 90 Blood Pressure 136/67 Blood Pressure [Left] O2 Sat by Pulse 97 96 Oximetry 05/21/18 05/21/18 05/21/18 18:27 18:32 18:35 Temperature Pulse Rate 89 93 H 84 Blood Pressure 119/73 Blood Pressure [Left] O2 Sat by Pulse 98 96 Oximetry 05/21/18 05/21/18 05/21/18 18:37 18:42 18:46 Temperature Pulse Rate 83 88 89 Blood Pressure Blood Pressure [Left] O2 Sat by Pulse 97 98 94 Oximetry 05/21/18 05/21/18 05/21/18 18:47 18:52 18:57 Temperature Pulse Rate 91 H 90 96 H Blood Pressure 111/66 Blood Pressure [Left] O2 Sat by Pulse 97 97 96 Oximetry 05/21/18 05/21/18 05/21/18 19:02 19:07 19:12 Temperature Pulse Rate 96 H 93 H 95 H Blood Pressure 110/62 Blood Pressure [Left] O2 Sat by Pulse 95 96 95 Oximetry 05/21/18 05/21/18 05/21/18 19:13 19:17 19:22 Temperature Pulse Rate 83 83 79 Blood Pressure 102/55 Blood Pressure [Left] O2 Sat by Pulse 94 97 97 Oximetry 05/21/18 05/21/18 05/21/18 19:27 19:29 19:32 Temperature 98.2 F Pulse Rate 91 H 76 81 Blood Pressure 114/56 Blood Pressure 114/56 [Left] O2 Sat by Pulse 97 18 L 97 Oximetry 05/21/18 05/21/18 05/21/18 19:34 19:37 19:42 Temperature Pulse Rate 89 85 88 Blood Pressure 114/56 Blood Pressure [Left] O2 Sat by Pulse 95 96 Oximetry 05/21/18 05/21/18 05/21/18 19:47 19:52 19:57 Temperature Pulse Rate 97 H 87 86 Blood Pressure 113/57 Blood Pressure [Left] O2 Sat by Pulse 96 94 97 Oximetry 05/21/18 05/21/18 05/21/18 19:59 20:02 20:03 Temperature Pulse Rate 99 H 85 82 Blood Pressure 113/57 Blood Pressure [Left] O2 Sat by Pulse 94 95 Oximetry 05/21/18 05/21/18 05/21/18 20:07 20:12 20:17 Temperature Pulse Rate 94 H 94 H 85 Blood Pressure 116/70 Blood Pressure [Left] O2 Sat by Pulse 97 97 97 Oximetry 05/21/18 05/21/18 05/21/18 20:22 20:27 20:32 Temperature Pulse Rate 93 H 94 H 95 H Blood Pressure 116/59 Blood Pressure [Left] O2 Sat by Pulse 97 97 98 Oximetry 05/21/18 05/21/18 05/21/18 20:37 20:42 20:47 Temperature Pulse Rate 86 91 H 86 Blood Pressure 119/57 Blood Pressure [Left] O2 Sat by Pulse 96 96 97 Oximetry 05/21/18 05/21/18 05/21/18 20:52 20:57 21:02 Temperature Pulse Rate 88 99 H 95 H Blood Pressure 132/80 Blood Pressure [Left] O2 Sat by Pulse 98 98 97 Oximetry 05/21/18 05/21/18 05/21/18 21:07 21:10 21:12 Temperature Pulse Rate 114 H 96 H 101 H Blood Pressure Blood Pressure [Left] O2 Sat by Pulse 100 93 97 Oximetry 05/21/18 05/21/18 05/21/18 21:17 21:19 21:22 Temperature Pulse Rate 94 H 100 H 102 H Blood Pressure Blood Pressure [Left] O2 Sat by Pulse 97 94 97 Oximetry 05/21/18 05/21/18 05/21/18 21:27 21:29 21:32 Temperature Pulse Rate 106 H 96 H 100 H Blood Pressure 112/71 Blood Pressure [Left] O2 Sat by Pulse 97 98 Oximetry 05/21/18 05/21/18 05/21/18 21:37 21:42 21:43 Temperature Pulse Rate 111 H 97 H 99 H Blood Pressure Blood Pressure [Left] O2 Sat by Pulse 96 97 91 Oximetry 05/21/18 05/21/18 05/21/18 21:44 21:47 21:49 Temperature Pulse Rate 95 H 105 H 94 H Blood Pressure 119/79 Blood Pressure [Left] O2 Sat by Pulse 99 92 Oximetry 05/21/18 05/21/18 05/21/18 21:52 21:54 21:57 Temperature Pulse Rate 113 H 103 H 103 H Blood Pressure Blood Pressure [Left] O2 Sat by Pulse 97 92 96 Oximetry 05/21/18 05/21/18 05/21/18 21:59 22:02 22:07 Temperature Pulse Rate 101 H 101 H 103 H Blood Pressure 128/79 Blood Pressure [Left] O2 Sat by Pulse 96 96 Oximetry 05/21/18 05/21/18 05/21/18 22:12 22:14 22:17 Temperature Pulse Rate 105 H 107 H 116 H Blood Pressure 138/90 Blood Pressure [Left] O2 Sat by Pulse 95 100 Oximetry 05/21/18 05/21/18 05/21/18 22:22 22:24 22:27 Temperature Pulse Rate 119 H 104 H 114 H Blood Pressure Blood Pressure [Left] O2 Sat by Pulse 95 93 99 Oximetry 05/21/18 05/21/18 05/21/18 22:29 22:31 22:32 Temperature Pulse Rate 100 H 110 H 103 H Blood Pressure 128/85 Blood Pressure [Left] O2 Sat by Pulse 94 95 Oximetry 05/21/18 05/21/18 05/21/18 22:37 22:41 22:42 Temperature Pulse Rate 102 H 109 H 104 H Blood Pressure Blood Pressure [Left] O2 Sat by Pulse 97 94 99 Oximetry 05/21/18 05/21/18 05/21/18 22:44 22:47 22:48 Temperature Pulse Rate 104 H 111 H 101 H Blood Pressure 137/84 Blood Pressure [Left] O2 Sat by Pulse 98 90 Oximetry 05/21/18 05/21/18 05/21/18 22:52 22:54 22:57 Temperature Pulse Rate 121 H 109 H 111 H Blood Pressure Blood Pressure [Left] O2 Sat by Pulse 95 89 99 Oximetry 05/21/18 05/21/18 05/21/18 22:59 23:02 23:05 Temperature Pulse Rate 106 H 105 H 112 H Blood Pressure 142/91 Blood Pressure [Left] O2 Sat by Pulse 96 93 Oximetry 05/21/18 05/21/18 05/21/18 23:07 23:12 23:14 Temperature Pulse Rate 120 H 107 H 109 H Blood Pressure 122/81 Blood Pressure [Left] O2 Sat by Pulse 99 99 90 Oximetry 05/21/18 05/21/18 05/21/18 23:17 23:22 23:27 Temperature Pulse Rate 101 H 100 H 74 Blood Pressure Blood Pressure [Left] O2 Sat by Pulse 95 92 97 Oximetry 05/21/18 05/21/18 05/21/18 23:28 23:29 23:32 Temperature Pulse Rate 79 72 72 Blood Pressure 108/67 Blood Pressure [Left] O2 Sat by Pulse 90 97 Oximetry 05/21/18 05/21/18 05/21/18 23:35 23:37 23:41 Temperature Pulse Rate 81 84 80 Blood Pressure Blood Pressure [Left] O2 Sat by Pulse 92 94 94 Oximetry 03/28/19 03/28/19 03/28/19 23:42 23:44 23:47 Temperature Pulse Rate 79 85 89 Blood Pressure 101/61 Blood Pressure [Left] O2 Sat by Pulse 94 94 Oximetry 05/21/18 05/21/18 05/21/18 23:52 23:53 23:57 Temperature Pulse Rate 84 91 H 91 H Blood Pressure Blood Pressure [Left] O2 Sat by Pulse 90 92 93 Oximetry 05/21/18 05/22/18 05/22/18 23:59 00:02 00:04 Temperature Pulse Rate 83 87 83 Blood Pressure 95/55 Blood Pressure [Left] O2 Sat by Pulse 93 94 94 Oximetry 05/22/18 05/22/18 05/22/18 00:07 00:12 00:15 Temperature Pulse Rate 92 H 90 88 Blood Pressure 114/69 Blood Pressure [Left] O2 Sat by Pulse 93 91 Oximetry 05/22/18 05/22/18 05/22/18 00:17 00:22 00:23 Temperature Pulse Rate 91 H 90 92 H Blood Pressure Blood Pressure [Left] O2 Sat by Pulse 94 97 92 Oximetry 05/22/18 05/22/18 05/22/18 00:27 00:29 00:32 Temperature Pulse Rate 89 96 H 92 H Blood Pressure 112/72 Blood Pressure [Left] O2 Sat by Pulse 96 92 97 Oximetry 05/22/18 05/22/18 05/22/18 00:37 00:42 00:45 Temperature Pulse Rate 103 H 91 H 107 H Blood Pressure 130/77 Blood Pressure [Left] O2 Sat by Pulse 97 98 Oximetry 05/22/18 05/22/18 05/22/18 00:47 00:52 00:57 Temperature Pulse Rate 105 H 103 H 104 H Blood Pressure Blood Pressure [Left] O2 Sat by Pulse 96 95 97 Oximetry 05/22/18 05/22/18 05/22/18 00:59 01:02 01:07 Temperature Pulse Rate 106 H 111 H 107 H Blood Pressure 118/78 Blood Pressure [Left] O2 Sat by Pulse 97 98 Oximetry 05/22/18 05/22/18 05/22/18 01:12 01:14 01:17 Temperature Pulse Rate 100 H 100 H 102 H Blood Pressure 121/78 Blood Pressure [Left] O2 Sat by Pulse 96 97 Oximetry 05/22/18 05/22/18 05/22/18 01:22 01:27 01:28 Temperature Pulse Rate 116 H 114 H 110 H Blood Pressure Blood Pressure [Left] O2 Sat by Pulse 98 100 91 Oximetry 05/22/18 05/22/18 05/22/18 01:29 01:32 01:37 Temperature Pulse Rate 108 H 112 H 122 H Blood Pressure 136/80 Blood Pressure [Left] O2 Sat by Pulse 95 97 Oximetry 05/22/18 05/22/18 05/22/18 01:42 01:44 01:47 Temperature Pulse Rate 118 H 113 H 115 H Blood Pressure 145/92 Blood Pressure [Left] O2 Sat by Pulse 97 98 Oximetry 05/22/18 05/22/18 05/22/18 01:52 01:57 02:00 Temperature Pulse Rate 111 H 115 H 112 H Blood Pressure 140/78 Blood Pressure [Left] O2 Sat by Pulse 99 96 Oximetry 05/22/18 05/22/18 05/22/18 02:02 02:07 02:12 Temperature Pulse Rate 125 H 117 H 111 H Blood Pressure Blood Pressure [Left] O2 Sat by Pulse 96 98 97 Oximetry 05/22/18 05/22/18 05/22/18 02:13 02:14 02:17 Temperature Pulse Rate 112 H 115 H 121 H Blood Pressure 139/83 Blood Pressure [Left] O2 Sat by Pulse 93 96 Oximetry 05/22/18 05/22/18 05/22/18 02:22 02:27 02:29 Temperature Pulse Rate 111 H 120 H 114 H Blood Pressure 152/90 Blood Pressure [Left] O2 Sat by Pulse 97 96 Oximetry 05/22/18 05/22/18 05/22/18 02:32 02:44 02:59 Temperature Pulse Rate 116 H 117 H 93 H Blood Pressure 137/94 129/87 Blood Pressure [Left] O2 Sat by Pulse 99 Oximetry 05/22/18 05/22/18 05/22/18 03:14 03:29 03:44 Temperature Pulse Rate 100 H 101 H 105 H Blood Pressure 128/83 134/88 137/95 Blood Pressure [Left] O2 Sat by Pulse Oximetry 05/22/18 05/22/18 05/22/18 03:59 04:14 04:30 Temperature Pulse Rate 101 H 99 H 108 H Blood Pressure 138/73 140/76 135/81 Blood Pressure [Left] O2 Sat by Pulse Oximetry 05/22/18 05/22/1805/22/19 04:45 04:55 04:59 Temperature Pulse Rate 98 H 107 H 114 H Blood Pressure 131/79 122/73 Blood Pressure [Left] O2 Sat by Pulse 95 Oximetry 05/22/18 05/22/18 05/22/18 05:00 05:05 05:10 Temperature Pulse Rate 108 H 114 H 107 H Blood Pressure Blood Pressure [Left] O2 Sat by Pulse 97 99 98 Oximetry - Exam Cardiovascular: Regular rate, Normal S1, Normal S2, No murmurs Lungs: Clear to auscultation, Normal air movement Abdomen: Present: normal appearance, soft. Absent: tenderness Vulva: both: normal (small amt bloody show noted. No fluid visualized) Uterus: Present: other (Gravid) FHR: category 2 Uterine Contraction Monitor Mode: External Cervical Dilatation: 6 (IUPC inserted in gentle fashion, Caput noted) Cervical Effacement Percentage: 80 station: -2 Uterine Contraction Frequency (min): 2-7min Uterine Contraction Duration: 40-70sec Uterine Contraction Pattern: Regular Uterine Tone Measurement Phase: Resting Uterine Contraction Intensity: Moderate Extremities: normal Deep Tendon Reflex Grade: Normal +2 - Labs Labs: Abnormal Labs 05/20/18 05/20/18 05/21/18 22:21 23:50 00:22 MCHC 35 H Magnesium AST 45 H Lactate Dehydrogenase 527 H Ur Specific [place] 1.031 H 05/21/18 18:30 MCHC Magnesium 4.60 H AST Lactate Dehydrogenase Ur Specific [place] Laboratory Results - last 24 hr 05/20/18 05/21/18 22:21 18:30 Magnesium 4.60 H RPR Nonreactive
[2018-05-22] MEDS ORDERED: XYLOCAINE 2%/ EPI 1:200,000 INFILTRATI ONE (05:17)
[2018-05-22] MEDS ORDERED: TYLENOL PR PRN (05:33)
[2018-05-22] MEDS ORDERED: PEPCID IV ONE (05:54)
[2018-05-22] MEDS ORDERED: ANCEF/STERILE WATER 2 GM/20 ML 2 GM/20 ML SYRINGE IV ONE (05:54)
[2018-05-22] MEDS ORDERED: REGLAN ONE (05:54)
[2018-05-22] MEDS ORDERED: BICITRA ONE (05:54)
[2018-05-22] MEDS ORDERED: ZOFRAN ONE (06:02)
[2018-05-22] MEDS ORDERED: NEO SYNEPHRINE/NS Syringe(OR USE) IV ONE (06:02)
[2018-05-22] MEDS ORDERED: SUBLIMAZE ONE (06:02)
[2018-05-22] MEDS ORDERED: DILAUDID ONE (06:15)
[2018-05-22] MEDS ORDERED: TORADOL ONE (06:17)
--- NOTE | 2018-05-22 06:24 | Event Note ---
Date: 05/22/18 (0546) Called to pt room s/p rebolus of epidural pr anesthesia. B/Ps 71/40, 90/49, 94/48 and pt vomiting. FHT's 60-70s. SVE /-3. Pulse ox 99%. Ephedrine 10mg IVP. Pt positioned side to side with minimal increase in FHTs. Pitocin & Magnesium Off. Dr. Ga notified and requested to come for STAT primary c/section d/t distress. Report given and Dr. Ga assumed care of pt. Pt prepped and to OR at 0600am. Explained to family urgency of primary c/s.
[2018-05-22] MEDS ORDERED: LACTATED RINGERS 1,000 ML ONE (06:27)
--- NOTE | 2018-05-22 06:36 | Operative Report ---
Operative Report Operative Report: Date of procedure: 05/22/2018 Pre-operative diagnosis: 1. Intrauterine at 38-2/7 weeks 2. Pre-ec lampsia 3. Non-reassuring surveillance Post-operative diagnosis: Same Procedure name(s): Primary low transverse section Surgeon: Federico Ga MD Chemical Inspector: None Anesthesia: Epidural anesthesia by Derek Ga CRNA EBL: 300 mL's Findings: A 3031 g male Apgars 7 at 1 minute 8 at 5 minutes. 1+ meconium fluid. Normal uterus. Normal tubes and ovaries bilaterally. Procedure: After the patient was prepped and draped in usual sterile fashion, and after satisfactory level of epidural anesthesia was obtained, the skin knife was used to make a transverse skin incision. The incision was excised down to layer of the fascia, which was nicked in the midline and extended laterally using the Bovie cautery. The rectus muscles were dissected off the rectus fascia both superiorly and inferiorly. The rectus bellies in the midline, and the peritoneum was entered under direct visualization. The peritoneal incision was extended superiorly and inferiorly. A bladder flap was created and the bladder blade was then placed. The uterus was scored in a curvilinear linear fashion, entered in the midline revealing 1+ meconium amniotic fluid. The 's head was delivered onto the surgical field, and the oropharynx and nasopharynx were bulb suctioned. The rest of the infant's body was delivered, cord was doubly clamped and cut and the infant was handed to the waiting respiratory team. Cord blood was obtained. The placenta was manually removed from the uterus, and the uterus removed from its normal anatomical position. After gentle uterine lavage, the incision was inspected and found to be without extensions. It was then closed in 2 layers using 0 Vicryl suture in a running interlocking fashion, the second layer imbricating the first. After good hemostasis was achieved, copious amounts or irrigation was performed, and the gutters were suctioned free of blood and blood clots. The uterus was then returned to its normal anatomical position, and after excellent hemostasis assured, the peritoneum was reapproximated using 3-0 Vicryl suture in a running interlocking fashion, and then the rectus muscles were re- approximated using 3-0 Vicryl suture in a [id number] configuration. The fascia was then re-approximated using 0 Vicryl suture in running interlocking fashion. The subcutaneous layer was made hemostatic using Bovie cautery, and the skin edges re-approximated using 4-0 Vicryl suture in a sub-cuticular fashion. Patient tolerated the procedure well was transported to recovery in stable condition.
[2018-05-22] MEDS ORDERED: LANSINOH TP PRN (06:43)
[2018-05-22] MEDS ORDERED: TUCKS PAD TP PRN (06:43)
[2018-05-22] MEDS ORDERED: NARCAN 0.4 MG/1 ML IV PRN ×2 (06:43→08:30)
[2018-05-22] MEDS ORDERED: ZOFRAN IV PRN ×2 (06:43→08:30)
[2018-05-22] MEDS ORDERED: MYLICON PO PRN (06:43)
[2018-05-22] MEDS ORDERED: PHENERGAN PR PRN ×2 (06:43→08:30)
[2018-05-22] MEDS ORDERED: SENOKOT PO PRN (06:43)
[2018-05-22] MEDS ORDERED: SODIUM CHLORIDE FLUSH SYRINGE 10 ML IV PRN ×2 (07:00→09:00)
[2018-05-22] MEDS ORDERED: PITOCin/NS 20 UNIT/1000ML DRIP 20 UNITS/1,000 ML BAG IV SCH (07:00)
[2018-05-22] MEDS ORDERED: D5LR 1,000 ML IV SCH (07:00)
--- NOTE | 2018-05-22 07:01 | Post Anesthesia Evaluation ---
- Post Anesthesia Evaluation Patient Participated: Yes Airway Patent: Yes Stable Respiratory Function: Yes Nausea/Vomiting: No Temp > 96.8F: Yes Pain Manageable: Yes Adequeate Hydration: Yes Anesthesia Complications: No Block Receding Appropriately: Yes Patient on Ventilator: No
[2018-05-22] MEDS: MAGNESIUM SULFATE 40GM/1000ML 40 GM/1,000 ML BAG IV SCH (07:28)
[2018-05-22] MEDS ORDERED: PHENERGAN PO PRN (08:30)
[2018-05-22] MEDS ORDERED: BENADRYL IV PRN (08:30)
[2018-05-22] MEDS ORDERED: DILAUDID IV PRN (08:30)
[2018-05-22] MEDS ORDERED: ANCEF/NS 1 GM/50 ML 1 GM/50 ML BAG IV SCH (14:00)
[2018-05-22] MEDS: IBUPROFEN PO PRN (15:57)
[2018-05-22 18:09] LABS: Hematocrit 34.5 % (30.3-42.9); Hemoglobin 11.5 gm/dl (10.1-14.3)
[2018-05-22] MEDS: TORADOL IV PRN (18:27)
[2018-05-23] MEDS ORDERED: LACTATED RINGERS 1,000 ML ONE (00:25)
[2018-05-23] MEDS: MAGNESIUM SULFATE 40GM/1000ML 40 GM/1,000 ML BAG IV SCH (01:55)
[2018-05-23] MEDS: TORADOL IV PRN (02:00)
[2018-05-23] MEDS ORDERED: ANCEF/NS 1 GM/50 ML 1 GM/50 ML BAG IV SCH (02:30)
[2018-05-23] MEDS ORDERED: M-M-R II VACCINE SUB-Q ONE (06:45)
--- NOTE | 2018-05-23 11:32 | Progress Note ---
Assessment and Plan A: /postop day 1 S/P primary low transverse section. Mild anemia secondary to and blood loss. Heart murmur (patient states she has had since childhood and was found to be benign). P: Advance diet as tolerated. Iron supplementation. Encouraged patient to ambulate. Subjective - Subjective Date of service: 05/23/18 Principal diagnosis: /postop day 1 S/P primary LTCS Interval history: /postop day 1 S/P primary low transverse section. Doing well. Patient states she is voiding without difficulty, passing gas, and ambulating well. Plans to eat a regular diet for lunch today. Patient denies headache, visual disturbance, nausea or vomiting, abdominal pain, leg pain, chest pain, shortness of breath, cough, or heavy bleeding. Patient reports: appetite normal, voiding normally, pain well controlled, flatus, ambulating normally, no dizzy ambulation, no bowel movement, no nauseated : doing well, in NICU Objective - Vital Signs Latest vital signs: Vital Signs Temp Pulse Resp BP BP Pulse Ox 05/23/18 09:08 98.5 F 92 H 24 138/91 97 05/23/18 07:10 96 H 133/85 05/23/18 05:45 97.6 F 98 H 16 128/84 05/23/18 04:48 96 H 16 126/70 126/70 05/23/18 03:48 100 H 16 131/79 131/79 05/23/18 03:10 100 H 18 130/73 05/23/18 02:48 99 H 116/65 05/23/18 02:08 98.1 F 100 H 18 130/73 05/23/18 02:00 16 05/23/18 01:48 100 H 130/73 05/23/18 00:48 93 H 127/76 05/22/18 23:48 87 119/68 05/22/18 22:48 90 127/68 05/22/18 21:48 82 126/86 05/22/18 20:48 85 136/93 05/22/18 20:15 98.1 F 90 18 136/78 05/22/18 19:48 90 136/78 05/22/18 18:48 97 H 143/84 05/22/18 18:27 14 05/22/18 17:48 109 H 131/81 05/22/18 16:57 16 05/22/18 16:48 96 H 138/84 05/22/18 15:59 97.9 F 16 05/22/18 15:48 98 H 121/70 05/22/18 14:48 88 130/73 05/22/18 13:48 101 H 135/86 05/22/18 12:47 94 H 137/87 05/22/18 12:00 97.9 F 16 Intake and Output 05/22/18 05/23/18 05/23/18 23:59 07:59 15:59 Intake Total 400 922.5 Output Total 1175 2300 Balance -775 -1377.5 Intake: IV 922.5 MAGNESIUM SULFATE 40GM/ 922.5 1000ML 40 gm In 1,000 ml @ 2 GM/HR 50 mls/hr IV DIRECT ROSAURA Rx#:[id number] Oral 400 Output: Urine 1175 2300 Indwelling Catheter 1175 2300 Other: Total, Intake Amount 280 Total, Output Amount 150 300 - Exam Cardiovascular: Present: Regular rate, Normal S1, Normal S2, Other (murmur heard (patient states she has had this since childhood and was previously evaluated and determined to be benign)) Lungs: Present: Clear to auscultation Abdomen: Present: normal appearance, soft, normal bowel sounds. Absent: distention, tenderness, guarding, rigidity Uterus: Present: normal, firm, fundal height below umbilicus. Absent: bogginess, tenderness Extremities: Present: normal, edema (mild bilateral LE edema). Absent: tenderness Incision: Present: normal, dry, intact, dressed - Labs Labs: Abnormal lab results 05/22/18 05/22/18 05/23/18 Range/Units 11:56 17:39 00:41 Magnesium 5.50 H 5.50 H 5.60 H (1.7-2.3) mg/dL
[2018-05-23] MEDS: NORCO 5/325 PO PRN ×2 (12:26→18:40)
[2018-05-23 14:50] LABS: Hematocrit 31.5 % (30.3-42.9); Hemoglobin 10.5 gm/dl (10.1-14.3)
[2018-05-23] MEDS: IBUPROFEN PO PRN ×2 (18:39→23:23)
[2018-05-23] MEDS: MILK OF MAGNESIA PO PRN (21:24)
[2018-05-23] MEDS: PERCOCET 5/325 PO PRN (23:24)
[2018-05-24] MEDS ORDERED: BOOSTRIX IM ONE (06:00)
[2018-05-24] MEDS ORDERED: NORMODYNE PO SCH (06:14)
--- NOTE | 2018-05-24 06:19 | Event Note ---
Date: 05/24/18 Elevated blood pressure. Labetalol 200 mg po BID ordered. Preeclamptic lab orders put in.
[2018-05-24] MEDS: PERCOCET 5/325 PO PRN ×3 (06:28→18:21)
[2018-05-24] MEDS: FEOSOL PO SCH (09:37)
[2018-05-24] MEDS: IBUPROFEN PO PRN ×2 (09:37→21:51)
[2018-05-24] MEDS: PRENATAL VITAMIN PO SCH (09:37)
[2018-05-24 09:56] LABS: Basophils % (Auto) 0.1 % (0.0-1.8); Eosinophils # (Auto) 0.1 K/mm3 (0.0-0.4); Eosinophils % (Auto) 1.2 % (0.0-4.3); Hematocrit 32.1 % (30.3-42.9); Hemoglobin 10.6 gm/dl (10.1-14.3); Lymphocytes # (Auto) 1.1 K/mm3 (1.2-5.4); Lymphocytes % (Auto) 9.8 % (13.4-35.0); Mean Corpuscular HGB Conc 33 % (30-34); Mean Corpuscular Volume 88 fl (79-97); Monocytes # (Auto) 0.7 K/mm3 (0.0-0.8); Platelet Count 175 K/mm3 (140-440); Red Blood Count 3.66 M/mm3 (3.65-5.03); Red Cell Distribution Width 14.7 % (13.2-15.2)
[2018-05-24 10:11] LABS: Alanine Aminotransferase 11 units/L (7-56); Albumin 2.8 g/dL (3.9-5); BUN/Creatinine Ratio 14; Blood Urea Nitrogen 11 mg/dL (7-17); Calcium 8.8 mg/dL (8.4-10.2); Hemolysis Index 12
[2018-05-24 12:35] LABS: Bilirubin,Urine NEG (Negative); Blood,Urine LG (Negative); Color,Urine Amber (Yellow); Mucus,Urine FEW /HPF; Urobilinogen,Urine < 2.0 mg/dL (<2.0)
[2018-05-24 12:50] LABS: RBC,Urine > 182.0 /HPF (0.0-6.0); WBC,Urine > 182.0 /HPF (0.0-6.0)
--- NOTE | 2018-05-24 13:17 | Progress Note ---
Assessment and Plan A: /postop day 2 S/P primary low transverse section. Anemia secondary to and blood loss. Elevated blood pressures, on Labetalol. Negative preeclamptic labs. P: Continue po Labetalol. Subjective - Subjective Date of service: 05/24/18 Principal diagnosis: /postop day 2 S/P primary LTCS Interval history: /postop day 2 S/P primary low transverse section. Doing well. Patient states she is voiding without difficulty, passing gas, and ambulating well. Tolerating a regular diet without nausea or vomiting. Patient denies headache, visual disturbance, nausea or vomiting, abdominal pain, leg pain, chest pain, shortness of breath, cough, or heavy bleeding. Patient is taking Labetalol 200 mg po BID for blood pressure control. Patient reports: appetite normal, voiding normally, pain well controlled, flatus, ambulating normally, no dizzy ambulation, no nauseated [place]: doing well, in NICU Objective - Vital Signs Latest vital signs: Vital Signs Temp Pulse Resp BP BP Pulse Ox 05/24/18 07:18 98.5 F 89 18 141/90 05/24/18 06:28 88 18 154/98 05/24/18 06:27 98.0 F 91 H 18 154/98 98 05/24/18 05:18 96 H 151/100 05/24/18 01:25 18 141/82 05/24/18 00:10 98.0 F 81 18 151/91 98 05/23/18 23:24 18 05/23/18 23:23 18 05/23/18 18:40 18 05/23/18 18:39 18 05/23/18 16:57 98.8 F 105 H 24 143/88 99 05/23/18 13:26 18 Intake and Output 05/23/18 05/24/18 05/24/18 23:59 07:59 15:59 Intake Total 300 860 Balance 300 860 Intake: Oral 560 Intake, Free Water 300 300 Other: Total, Intake Amount 360 - Exam Cardiovascular: Present: Regular rate, Normal S1, Normal S2 Lungs: Present: Clear to auscultation Abdomen: Present: normal appearance, soft. Absent: distention, tenderness, guarding, rigidity Uterus: Present: normal, firm, fundal height below umbilicus. Absent: bogginess, tenderness Extremities: Present: normal. Absent: tenderness, edema Incision: Present: normal, dry, intact, dressed - Labs Labs: Abnormal lab results 05/24/18 05/24/18 05/24/18 Range/Units 09:11 09:11 12:05 WBC 11.5 H (4.5-11.0) K/mm3 Lymph % (Auto) 9.8 L (13.4-35.0) % Lymph # 1.1 L (1.2-5.4) K/mm3 Seg Neutrophils % 82.9 H (40.0-70.0) % Seg Neutrophils # 9.6 H (1.8-7.7) K/mm3 Total Protein 6.1 L (6.3-8.2) g/dL Albumin 2.8 L (3.9-5) g/dL Ur Specific [place] 1.032 H (1.003-1.030) Urine WBC (Auto) > 182.0 H (0.0-6.0) /HPF U Epithel Cells (Auto) 24.0 H (0-13.0) /HPF
--- NOTE | 2018-05-24 17:44 | Event Note ---
Date: 05/24/18 Changed patient's BP medication to Labetalol 300 mg po BID and notified pt. and nurse of this change.
[2018-05-24] MEDS: MILK OF MAGNESIA PO PRN (21:51)
[2018-05-24] MEDS: MACROBID PO SCH (21:51)
[2018-05-24] MEDS: NORMODYNE PO SCH (21:51)
[2018-05-25] MEDS: PERCOCET 5/325 PO PRN ×2 (02:49→09:50)
[2018-05-25] MEDS: FEOSOL PO SCH (09:34)
[2018-05-25] MEDS: MACROBID PO SCH ×2 (09:34→22:47)
[2018-05-25] MEDS: PRENATAL VITAMIN PO SCH (09:36)
[2018-05-25] MEDS: PROCARDIA XL PO SCH (09:36)
[2018-05-25] MEDS: NORMODYNE PO SCH ×2 (09:49→22:46)
--- NOTE | 2018-05-25 11:19 | Progress Note ---
Assessment and Plan - Patient Problems (1) S/P primary low transverse Current Visit: Yes Status: Acute Plan to address problem: POD 3 - stable Continue routine postop orders Ambulation encouraged as tolerated Discharge to home later today if BPs stabilize on Labetalol and Procardia (2) Pre-eclampsia Current Visit: Yes Status: Acute Qualifiers: Trimester: third trimester Qualified Code(s): O14.93 - Unspecified pre- eclampsia, third trimester Plan to address problem: Asymptomatic Completed magnesium sulfate therapy Continue antihypertensive therapy: Labetalol 300mg PO BID and Procardia XL 30mg qd Subjective - Subjective Date of service: 05/25/18 Principal diagnosis: POD #3, s/p Primary LTCS, Pre-ecalmpsia Interval history: see H&P, OB Progress Notes, Event Notes, 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 Patient reports: appetite normal, voiding normally, pain well controlled, flatus, ambulating normally, other (denies headache, visual distrubances or RUQ pain), no dizzy ambulation [place]: doing well Objective - Vital Signs Latest vital signs: Vital Signs Temp Pulse Resp BP BP Pulse Ox 05/25/18 09:49 96 H 154/101 05/25/18 08:55 97.5 F L 109 H 18 154/104 99 05/25/18 04:32 98.0 F 94 H 16 131/84 96 05/24/18 23:59 98.6 F 90 18 142/94 96 05/24/18 21:51 87 145/94 05/24/18 20:17 98.6 F 93 H 16 149/95 96 05/24/18 16:25 98.4 F 89 18 145/97 05/24/18 13:28 98.4 F 87 18 145/92 Intake and Output 05/24/18 05/25/18 05/25/18 23:59 07:59 15:59 Intake Total 660 500 Balance 660 500 Intake: Oral 360 200 Intake, Free Water 300 300 Other: Total, Intake Amount 360 200 - Exam Cardiovascular: Present: Regular rate Lungs: Present: Clear to auscultation Abdomen: Present: normal appearance, soft Vulva: both: normal Uterus: Present: normal, firm, fundal height below umbilicus Incision: Present: normal, dry, intact, other (steri strips in place) Comments: scant lochia - Labs Labs: Abnormal lab results 05/24/18 Range/Units 12:05 Ur Specific [place] 1.032 H (1.003-1.030) Urine WBC (Auto) > 182.0 H (0.0-6.0) /HPF U Epithel Cells (Auto) 24.0 H (0-13.0) /HPF
[2018-05-25] MEDS: IBUPROFEN PO PRN (15:01)
[2018-05-25] MEDS: NORCO 5/325 PO PRN (20:37)
[2018-05-26] MEDS: NORCO 5/325 PO PRN ×3 (01:12→20:58)
[2018-05-26] MEDS: IBUPROFEN PO PRN ×2 (08:14→20:57)
--- NOTE | 2018-05-26 09:59 | Progress Note ---
Assessment and Plan A: 27 yo @ POD 4 S/P magneisum drip Elevated B/Ps A+ bld type Breast and bottle feeding P: Continue routine PP orders Continue Labetolol 300 mg po and Procardia XL 30 mg daily Will consult with physician May d/c home later today if B/P stablilize on current medications Subjective - Subjective Date of service: 05/26/18 (1837) Principal diagnosis: POD #4, s/p Primary LTCS, Pre-ecalmpsia Patient reports: appetite normal, voiding normally, pain well controlled (with medications), flatus, ambulating normally : doing well, other (and ), bottle feeding Objective - Vital Signs Latest vital signs: Vital Signs Temp Pulse Resp BP BP Pulse Ox 05/26/18 06:30 20 05/26/18 04:10 98.0 F 101 H 20 145/96 98 05/26/18 02:49 98.0 F 98 H 20 131/85 97 05/26/18 01:12 20 05/26/18 00:15 94 H 135/84 97 05/26/18 00:00 98.4 F 87 20 135/84 97 05/25/18 22:47 97 H 138/90 98 05/25/18 22:46 96 H 138/90 05/25/18 20:37 22 05/25/18 20:20 104 H 22 141/96 100 05/25/18 16:19 98.5 F 94 H 16 140/89 98 05/25/18 12:00 98.5 F 96 H 16 141/94 97 Intake and Output 05/25/18 05/26/18 05/26/18 23:59 07:59 15:59 Intake Total 480 120 Balance 480 120 Intake: Oral 480 120 Other: Total, Intake Amount 240 120 # Voids Indwelling Catheter 1 1 # Bowel Movements 1 - Exam Breasts: Present: normal Cardiovascular: Present: Regular rate, Normal S1, Normal S2 Lungs: Present: Clear to auscultation, Normal air movement Abdomen: Present: soft, normal bowel sounds Uterus: Present: fundal height below umbilicus (U-2) Extremities: Present: normal Deep Tendon Reflex Grade: Normal +2 Incision: Present: dry, intact, other (steri-strips intact, no signs of infection)
[2018-05-26] MEDS: NORMODYNE PO SCH ×2 (10:06→21:00)
[2018-05-26] MEDS: MACROBID PO SCH ×2 (10:08→21:00)
[2018-05-26] MEDS: FEOSOL PO SCH ×2 (10:09→10:11)
[2018-05-26] MEDS: PROCARDIA XL PO SCH (10:09)
[2018-05-26] MEDS: PRENATAL VITAMIN PO SCH (10:09)
[2018-05-26 22:40] VITALS: BP 130/74
== END 2018-05-26 22:30 | disposition home or self-care (01) | DRG 766 ==
LOC: LD 20:37 → OB 05-23 08:17
PROVIDERS: ADMIT Obstetrics & Gynecology; ATTEND Obstetrics & Gynecology
PROC: 3E0P7VZ Introduction of Hormone into Female Reproductive, Via Natural or Artificial Opening (ICD-10-PCS; 2018-05-20)
PROC: 0U7C7ZZ Dilation of Cervix, Via Natural or Artificial Opening (ICD-10-PCS; 2018-05-21)
PROC: 10D00Z1 Extraction of Products of Conception, Low, Open Approach (ICD-10-PCS; principal; 2018-05-22)
PROC: 10H07YZ Insertion of Other Device into Products of Conception, Via Natural or Artificial Opening (ICD-10-PCS; 2018-05-22)
PROC: 3E0234Z Introduction of Serum, Toxoid and Vaccine into Muscle, Percutaneous Approach (ICD-10-PCS; 2018-05-23)
DX: O14.94 Unspecified pre-eclampsia, complicating childbirth (principal); O99.824 Streptococcus B carrier state complicating childbirth; Z37.0 Single live birth; Z3A.38 38 weeks gestation of pregnancy; D50.0 Iron deficiency anemia secondary to blood loss (chronic); O99.02 Anemia complicating childbirth; R01.1 Cardiac murmur, unspecified; O99.89 Other specified diseases and conditions complicating pregnancy, childbirth and the puerperium; R00.1 Bradycardia, unspecified; K21.9 Gastro-esophageal reflux disease without esophagitis; O99.62 Diseases of the digestive system complicating childbirth; O76 Abnormality in fetal heart rate and rhythm complicating labor and delivery; O77.0 Labor and delivery complicated by meconium in amniotic fluid; Z23 Encounter for immunization
CPT/HCPCS: 36415; 80053; 81001; 82565; 83615; 83735; 84450; 84460; 84550; 85014; 85018; 85025; 85027; 86592; 86850; 86900; 86901; 88305; 88307; G0378; C9250; J0290; J0595; J0690; J1170; J1885; J2370; J2405; J2590; J2765; J3010; J3475; J7120

== ENCOUNTER 2019-07-03 04:39 | Outpatient (CLI) | payer MEDICAID, OTHER ==
[2019-07-03] MEDS ORDERED: LACTATED RINGERS 500 ML IV ONE (04:57)
[2019-07-03] MEDS ORDERED: ePHEDrine SULFATE 50 MG/1 ML INJ ONE (06:29)
[2019-07-03 06:32] LABS: Bacteria,Urine 4+ /HPF (Negative); Bilirubin,Urine NEG (Negative); Blood,Urine NEG (Negative); Calcium Oxalate Crystals,Urine 3+; Color,Urine Amber (Yellow); Mucus,Urine 1+ /HPF
== END 2019-07-03 08:41 | disposition home or self-care (01) ==
LOC: TRG 04:39 → APU 04:52 → TRG 08:41
PROVIDERS: ATTEND Obstetrics & Gynecology
DX: O47.03 False labor before 37 completed weeks of gestation, third trimester (principal); Z3A.35 35 weeks gestation of pregnancy
CPT/HCPCS: 59025; 81001; 87086

== ENCOUNTER 2019-07-08 21:19 | Observation (INO) | payer MEDICAID ==
[2019-07-08 22:35] LABS: Hematocrit 34.1 % (30.3-42.9); Hemoglobin 11.3 gm/dl (10.1-14.3); Mean Corpuscular HGB Conc 33 % (30-34); Mean Corpuscular Volume 83 fl (79-97); Platelet Count 238 K/mm3 (140-440); Red Cell Distribution Width 15.4 % (13.2-15.2)
[2019-07-08 22:49] LABS: Alanine Aminotransferase 20 units/L (7-56); Bacteria,Urine 2+ /HPF (Negative); Bilirubin,Urine NEG (Negative); Blood,Urine NEG (Negative); Color,Urine Yellow (Yellow); Mucus,Urine 2+ /HPF; Uric Acid 3.5 mg/dL (3.5-7.6); Urobilinogen,Urine < 2.0 mg/dL (<2.0)
--- NOTE | 2019-07-08 22:51 | Ultrasound Report ---
Biophysical profile Ultrasound HISTORY: twin gestation. TECHNIQUE: Grayscale and color imaging performed. COMPARISON: No recent exam available for comparison FINDINGS: There are twin gestations. Twin A: The fetus received a score of 2 out of 2 for breathing, movement, posture/tone, and TU. Tota l score was 8 out of 8. Heart rate was 148 bpm. Twin B: The fetus received a score of 2 out of 2 for breathing, movement, posture/tone, and TU. Tota l score was 8 out of 8. Heart rate was 144 bpm. IMPRESSION: Normal biophysical profile for each fetus. Signer Name: Carlos Mccartney MD Signed: 07/08/2019 10:47 PM Workstation Name: [id number]
[2019-07-08 22:53] LABS: Amphetamine Screen,Urine PRESUMPTIVE NEGATIVE; Benzodiazepines Screen,Urine PRESUMPTIVE NEGATIVE; Cannabinoid Screen,Urine PRESUMPTIVE NEGATIVE; Cocaine Screen,Urine PRESUMPTIVE NEGATIVE; Creatinine,Urine 178.4 mg/dL (0.1-20.0); Methadone Screen,Urine PRESUMPTIVE NEGATIVE; Opiate Screen,Urine PRESUMPTIVE NEGATIVE; Protein/Creatinine Ratio,Urine 0.64
--- NOTE | 2019-07-09 06:25 | Ultrasound Report ---
Biophysical profile Ultrasound HISTORY: WELL BEING; TWIN GEST. TECHNIQUE: Grayscale and color imaging performed. COMPARISON: No recent exam available for comparison FINDINGS: There are twin gestations. Twin A: The fetus received a score of 2 out of 2 for breathing, movement, posture/tone, and TU. Tota l score was 8 out of 8. Heart rate was 148 bpm. Twin B: The fetus received a score of 2 out of 2 for breathing, movement, posture/tone, and TU. Tota l score was 8 out of 8. Heart rate was 144 bpm. IMPRESSION: Normal biophysical profile for each fetus. Signer Name: Carlos Mccartney MD Signed: 07/09/2019 6:21 AM Workstation Name: [id number]
[2019-07-09 07:32] VITALS: BP 125/77
[2019-07-09] MEDS ORDERED: LACTATED RINGERS 1,000 ML IV SCH (08:00)
[2019-07-09] MEDS ORDERED: LACTATED RINGERS 1,000 ML ONE (08:00)
== END 2019-07-09 10:00 | disposition home or self-care (01) ==
LOC: TRG 21:19 → APU 21:20 → LD 07-09 07:34 → TRG 07-09 08:55
PROVIDERS: ADMIT Obstetrics & Gynecology; ATTEND Obstetrics & Gynecology
DX: O13.3 Gestational [pregnancy-induced] hypertension without significant proteinuria, third trimester (principal); O30.043 Twin pregnancy, dichorionic/diamniotic, third trimester; O34.219 Maternal care for unspecified type scar from previous cesarean delivery; O09.93 Supervision of high risk pregnancy, unspecified, third trimester; Z87.59 Personal history of other complications of pregnancy, childbirth and the puerperium; Z3A.36 36 weeks gestation of pregnancy
CPT/HCPCS: 36415; 59025; 76819; 80307; 81001; 82565; 82570; 83615; 84156; 84450; 84460; 84550; 85027; 86592; 86850; 86900; 86901; G0378; J7120